=== PATIENT | male | born 1995 | race Caucasian/White ===

== ENCOUNTER 2016-09-11 07:26 | Inpatient (IN) | payer SELFPAY ==
[2016-09-11] MEDS ORDERED: EPINEPHrine HCL (1:10,000) 1 MG/10 ML SYRINGE ONE (07:33)
[2016-09-11] MEDS ORDERED: MIDAZOLAM HCL 5 MG/ML VIAL (1 ML) ONE (07:43)
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
[2016-09-11] MEDS ORDERED: VECURONIUM BROMIDE 10 MG VIAL ONE (08:12)
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
[2016-09-11] MEDS ORDERED: TRANEXAMIC ACID INJ 1,000 MG/10 ML AMP ONE (09:07)
[2016-09-11 09:12] LABS: BLOOD GAS CARBOXYHEMOGLOBIN 0.6 % (0-4); BLOOD GAS HCO3 11 mmol/L (22-26); BLOOD GAS METHEMOGLOBIN 1.7 % (0-2); BLOOD GAS O2 HGB SATURATION 71 % (90-100); BLOOD GAS OXYGEN CONTENT 7.8 Vol % (12.0-20.0); BLOOD GAS PCO2 74 mmHg (38-42); BLOOD GAS PO2 57 mmHg (61-120); BLOOD GAS TOTAL HGB 7.7 G/DL (12.0-16.0); CRITICAL VALUE YES; STAT YES; TEMP CORR TO 98.6
[2016-09-11] MEDS ORDERED: SODIUM BICARBONATE 8.4% INJ 50 ML ONE (09:23)
[2016-09-11] MEDS ORDERED: NOREPINEPHRINE-DEXTROSE DRIP 250 ML IV ONE (09:24)
[2016-09-11] MEDS ORDERED: CALCIUM CHLORIDE 10% SOLN 1 GRAM/10 ML SYR ONE (09:24)
[2016-09-11] MEDS ORDERED: HEPARIN SODIUM - SQ 10,000 UNITS/ML VIAL ONE (09:33)
[2016-09-11 09:42] LABS: BLOOD GAS BASE EXCESS 7.1 mmol/L (-2-2); BLOOD GAS CARBOXYHEMOGLOBIN 0.8 % (0-4); BLOOD GAS HCO3 36 mmol/L (22-26); BLOOD GAS METHEMOGLOBIN 0.9 % (0-2); BLOOD GAS O2 HGB SATURATION 76 % (90-100); BLOOD GAS OXYGEN CONTENT 8.2 Vol % (12.0-20.0); BLOOD GAS PCO2 118 mmHg (38-42); BLOOD GAS PO2 51 mmHg (61-120); BLOOD GAS TOTAL HGB 7.6 G/DL (12.0-16.0); CRITICAL VALUE YES; OXYGEN DEVICE VENT; TEMP CORR TO 98.6
[2016-09-11 09:43] LABS: DRAW SITE ALINE; FIO2 100 %; STAT YES
[2016-09-11] MEDS ORDERED: IODIXANOL 320 MG/ML 50 ML VIAL (for RAD SPEC) I-ARTERIAL ONE (09:47)
[2016-09-11 09:52] VITALS: O2SAT 80
[2016-09-11] MEDS ORDERED: EPINEPHrine HCL (1:1000) 1 MG/ML VIAL ONE (10:17)
[2016-09-11 10:24] LABS: BLOOD GAS BASE EXCESS -17.8 mmol/L (-2-2); BLOOD GAS CARBOXYHEMOGLOBIN 0.4 % (0-4); BLOOD GAS HCO3 15 mmol/L (22-26); BLOOD GAS METHEMOGLOBIN 1.3 % (0-2); BLOOD GAS O2 HGB SATURATION 58 % (90-100); BLOOD GAS OXYGEN CONTENT 4.9 Vol % (12.0-20.0); BLOOD GAS PCO2 103 mmHg (38-42); BLOOD GAS PO2 42 mmHg (61-120); BLOOD GAS TOTAL HGB 5.9 G/DL (12.0-16.0); CRITICAL VALUE YES; DRAW SITE ART LINE; FIO2 100 %; LITER FLOW 15 L/M; OXYGEN DEVICE AMBU BAG; STAT YES; TEMP CORR TO 98.6
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
[2016-09-11] MEDS ORDERED: GENTAMICIN SULFATE 80 MG/2 ML VIAL ONE (10:48)
[2016-09-11 10:50] LABS: HEMATOCRIT 14.2 % (39.0-51.0); MEAN CORPUSCULAR HEMOGLOBIN 31.1 PG (27.0-34.0); MEAN CORPUSCULAR HGB CONC 34.5 % (32.0-36.0); PLATELET COUNT 46 TH/MM3 (150-450); RED BLOOD COUNT 1.58 MIL/MM3 (4.50-5.90); RED CELL DISTRIBUTION WIDTH 15.3 % (11.6-17.2); WHITE BLOOD COUNT 4.9 TH/MM3 (4.0-11.0)
[2016-09-11] MEDS ORDERED: NOREPINEPHRINE 4 MG/4 ML AMP IV ONE (10:51)
[2016-09-11] MEDS ORDERED: CALCIUM CHLORIDE 10% SOLN 1 GRAM/10 ML SYR IV ONE ×4 (10:51)
[2016-09-11] MEDS ORDERED: SODIUM BICARBONATE 8.4% INJ 50 MEQ/50 ML SYR IV ONE ×5 (10:51→12:00)
[2016-09-11] MEDS ORDERED: MAGNESIUM SULFATE 40 MEQ/10 ML VIAL IV ONE (10:51)
[2016-09-11] MEDS ORDERED: EPINEPHrine HCL (1:1000) 30 MG/30 ML VIAL IV ONE ×3 (10:51→12:00)
[2016-09-11] MEDS ORDERED: EPINEPHrine HCL (1:10,000) 1 MG/10 ML SYRINGE IV ONE ×4 (10:51)
[2016-09-11 10:52] LABS: ANION GAP 21 MEQ/L (5-15); BLOOD UREA NITROGEN 9 MG/DL (7-18); CHLORIDE 114 MEQ/L (98-107); GLOMERULAR FILTRATION RATE 67 ML/MIN (>89)
[2016-09-11 10:53] LABS: SODIUM (NA) 156 MEQ/L (136-145)
[2016-09-11 10:54] LABS: POTASSIUM 8.5 MEQ/L (3.5-5.1)
[2016-09-11 11:00] LABS: HEMO FLAGS AUTO DIFF
[2016-09-11 11:14] LABS: BLOOD UREA NITROGEN 8 MG/DL (7-18); CHLORIDE 109 MEQ/L (98-107); GLOMERULAR FILTRATION RATE 69 ML/MIN (>89)
[2016-09-11 11:15] LABS: ANION GAP 15 MEQ/L (5-15); BICARBONATE GREATER THAN 45.0 MEQ/L (21.0-32.0)
[2016-09-11 11:17] LABS: POTASSIUM 8.2 MEQ/L (3.5-5.1); SODIUM (NA) 169 MEQ/L (136-145)
[2016-09-11] MEDS ORDERED: MIDAZOLAM HCL 2 MG/2 ML VIAL ONE (11:18)
[2016-09-11 11:43] LABS: APTT (PATIENT) GREATER THAN 277.5 SEC (24.3-30.1); PROTHROMBIN TIME - PATIENT GREATER THAN 180.0 SEC (9.8-11.6)
[2016-09-11 11:44] LABS: INTERNATIONAL NORMALIZED RATIO GREATER THAN 16.7 RATIO
[2016-09-11 11:54] LABS: BANDS 11 % (0-6); EOSINOPHILS 1 % (0-4); NEUTROPHIL # MANUAL DIFF 3.8 TH/MM3 (1.8-7.7); PLATELET ESTIMATE SMEAR LOW (NORMAL); PLATELET MORPHOLOGY NORMAL (NORMAL); POLYS (SEG NEUTROPHILS) 67 % (16-70); SCAN/DIFF FINAL DIFF MANUAL; WBC DIFF SAMPLE 100
[2016-09-11] MEDS ORDERED: CALCIUM GLUCONATE 10% 1 GM/10 ML VIAL IV ONE (12:00)
[2016-09-11] MEDS ORDERED: PHENYLEPH/NS 1000 MCG/10 ML SYR IV ONE (12:00)
[2016-09-11] MEDS ORDERED: NORMOSOL R INJ 3,000 ML IV ONE (12:00)
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
--- NOTE | 2016-09-11 21:35 | PD.PROCEDR ---
Procedure Note Procedure CPR procedure note Presenting rhythm: PEA Event Details: Proximally 20 minutes of CPR, multiple rounds of epinephrine, hyperkalemia the likely cause. Calcium chloride given. ROSC obtained. Procedure Description: Arrived at [facility]. Followed ACLS guidelines. See code sheet for details. I was personally present for the entire CPR event. Stiven Borja MD September 11, 2016 21:35
--- NOTE | 2016-09-11 21:37 | PD.PROCEDR ---
Procedure Note Procedure Endotracheal Intubation Diagnosis: Acute polytrauma Indications: Acute hypoxic and hypercarbic respiratory failure Consent: Consent is deemed emergent or medically necessary Anesthesia: None. The patient was a GCS of 3. Description of the Procedure: The patient was in a c-collar. In-line stabilization was maintained.. Pre- oxygenation was performed using a [id number]. Anesthesia was not given due to the patient's poor GCS. A glide scope video laryngoscope was used for laryngoscopy and a Grade II view was obtained. A 8.0 cuffed endotracheal tube was inserted atraumatically through the vocal cords. Confirmation of correct endotracheal tube placement was made by equal and bilateral breath sounds and colorimetric CO2 detection. The endotracheal tube was secured at 23 cm at the teeth. There were no immediate complications noted. The patient was hemodynamically unstable at the start and the conclusion of the procedure. Resuscitation was ongoing.. A chest x-ray has been ordered. I personally performed the procedure. Stiven Borja MD September 11, 2016 21:37
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
== END 2016-09-11 10:52 | disposition expired | DRG 957 ==
LOC: NEPI 07:26 → EDBD 07:52 → NEDA 07:52 → N03A 09:38
PROVIDERS: ADMIT Surgery; ATTEND Surgery
PROC: 04VF3DZ Restriction of Left Internal Iliac Artery with Intraluminal Device, Percutaneous Approach (ICD-10-PCS; 2016-09-11)
PROC: 04VE3DZ Restriction of Right Internal Iliac Artery with Intraluminal Device, Percutaneous Approach (ICD-10-PCS; 2016-09-11)
PROC: 5A12012 Performance of Cardiac Output, Single, Manual (ICD-10-PCS; 2016-09-11)
PROC: 5A1935Z Respiratory Ventilation, Less than 24 Consecutive Hours (ICD-10-PCS; 2016-09-11)
PROC: 30233K1 Transfusion of Nonautologous Frozen Plasma into Peripheral Vein, Percutaneous Approach (ICD-10-PCS; 2016-09-11)
PROC: 30233N1 Transfusion of Nonautologous Red Blood Cells into Peripheral Vein, Percutaneous Approach (ICD-10-PCS; 2016-09-11)
PROC: 30233R1 Transfusion of Nonautologous Platelets into Peripheral Vein, Percutaneous Approach (ICD-10-PCS; 2016-09-11)
PROC: 30233M1 Transfusion of Nonautologous Plasma Cryoprecipitate into Peripheral Vein, Percutaneous Approach (ICD-10-PCS; 2016-09-11)
PROC: B41G1ZZ Fluoroscopy of Left Lower Extremity Arteries using Low Osmolar Contrast (ICD-10-PCS; 2016-09-11)
PROC: B41F1ZZ Fluoroscopy of Right Lower Extremity Arteries using Low Osmolar Contrast (ICD-10-PCS; 2016-09-11)
PROC: 07TP0ZZ Resection of Spleen, Open Approach (ICD-10-PCS; 2016-09-11)
PROC: 0BH17EZ Insertion of Endotracheal Airway into Trachea, Via Natural or Artificial Opening (ICD-10-PCS; principal; 2016-09-11 07:51)
DX: S36.032A Major laceration of spleen, initial encounter (principal); S82.252B Displaced comminuted fracture of shaft of left tibia, initial encounter for open fracture type I or II; J96.01 Acute respiratory failure with hypoxia; S32.59 Other specified fracture of pubis; I46.9 Cardiac arrest, cause unspecified; R57.9 Shock, unspecified; J96.02 Acute respiratory failure with hypercapnia; S31.619A Laceration without foreign body of abdominal wall, unspecified quadrant with penetration into peritoneal cavity, initial encounter; D68.9 Coagulation defect, unspecified; K66.1 Hemoperitoneum; S36.892A Contusion of other intra-abdominal organs, initial encounter; E87.2 Acidosis; N17.9 Acute kidney failure, unspecified; D69.59 Other secondary thrombocytopenia; S33.2XXA Dislocation of sacroiliac and sacrococcygeal joint, initial encounter; V27.4XXA Motorcycle driver injured in collision with fixed or stationary object in traffic accident, initial encounter
CPT/HCPCS: 31500; 36247; 36430; 37244; 71010; 72170; 73552; 73590; 75716; 75736; 76937; 80048; 82805; 83605; 85007; 85027; 85610; 85730; 86850; 86900; 86901; 86920; 86927; 86965; 88305; 92950; 96374; 96375; 99291; C1765; C1769; C1887; C1894; G0390; J0171; J0610; J1580; J1644; J2250; J2370; J3010; J3475; L0150; P9016; P9017; P9035; Q9967